=== PATIENT | female | born 1945 | race Caucasian/White ===

== ENCOUNTER 2018-10-02 02:30 | Observation (INO) | payer MEDICARE, OTHER ==
[~2018-10-02] VITALS: Ht 165.1 cm; Wt 84.4 kg
[~2018-10-02 02:30] MED LIST: CITA20 PO; LEVSOD100 PO; LISI20 PO; METO25ER PO; NAPR220 PO; TRIHYD253A PO
[2018-10-02] MEDS ORDERED: METF500 (03:26)
[2018-10-02] MEDS ORDERED: EXEM25 (03:29)
[2018-10-02 04:00] LABS: Source, Urine Clean Catch
[2018-10-02 04:04] LABS: Bilirubin, Urine Neg (Neg); Blood, Urine Neg (Neg); Glucose Qualitative, Urine Neg (Neg); Ketones, Urine Neg (Neg); Leukocyte Esterase, Urine 1+ (Neg); Nitrite, Urine Neg (Neg); Protein, Urine Neg (Neg); Urobilinogen, Urine NORM (Normal)
[2018-10-02 04:09] LABS: Appearance, Urine Clear (Clear); Color, Urine Pale Yellow (P-Yellow)
[2018-10-02 04:10] LABS: Bacteria Not Seen /hpf; Red Blood Cells, Urine Not Seen /hpf (0-2); Squamous Epithelial Cells Not Seen /hpf (Few); White Blood Cells, Urine 0-2 /hpf (0-5)
[2018-10-02 04:13] LABS: U Amphetamine Screen Not Detected; U Barbituate Screen Not Detected; U Benzodiazapine Screen Not Detected; U Buprenorphine Screen Not Detected; U Cannabinoids Screen Not Detected; U Cocaine Screen Not Detected; U Methadone Screen Not Detected; U Methamphetamine Screen Not Detected; U Opiates Screen Not Detected; U Oxycodone Screen Not Detected; U Phencyclidine Screen Not Detected; U Propoxyphene Screen Not Detected
[2018-10-02 04:23] LABS: BASOPHILS ABSOLUTE AUTO 0.03 K/mm3 (0.00-0.23); BASOPHILS PERCENT AUTO 1 % (0-2); EOSINOPHILS ABSOLUTE AUTO 0.22 K/mm3 (0.00-0.68); EOSINOPHILS PERCENT AUTO 4 % (0-6); Hematocrit 41.4 % (33.0-51.0); IMMATURE GRAN ABSOLUTE AUTO 0.01 K/mm3 (0.00-0.10); IMMATURE GRAN PERCENT AUTO 0 % (0-1); LYMPHOCYTES ABSOLUTE AUTO 1.63 K/mm3 (0.84-5.20); LYMPHOCYTES PERCENT AUTO 29 % (21-46); MONOCYTES ABSOLUTE AUTO 0.53 K/mm3 (0.16-1.47); MONOCYTES PERCENT AUTO 10 % (4-13); Mean Corpuscular HGB 33.7 pg (26.0-34.0); Mean Corpuscular HGB Conc 33.8 g/dL (31.5-36.5); Mean Corpuscular Volume 100 fL (80-100); Mean Platelet Volume 9.7 fL (9.1-12.4); NEUTROPHILS ABSOLUTE AUTO 3.15 K/mm3 (1.96-9.15); NEUTROPHILS PERCENT AUTO 57 % (41-73); Platelet Count 204 K/mm3 (150-400); RDW Coefficient Variation 13.2 % (11.7-14.2); RDW Standard Deviation 48.9 fL (35.1-46.3); Red Blood Cell Count 4.16 M/mm3 (3.80-5.20); White Blood Cell Count 5.57 K/mm3 (4.00-11.30)
[2018-10-02 04:51] LABS: Ethanol (Alcohol), Blood, Med 153 mg/dL; Salicylate <1.7 mg/dL (2.8-20.0)
[2018-10-02 05:01] LABS: Alanine Aminotransfer (ALT/SGP 37 U/L (12-78); Albumin, Blood 3.8 g/dL (3.4-5.0); Alk Phos 87 U/L (50-136); Anion Gap 11 mmol/L (6-16); Aspartate Aminotrans (AST/SGOT 25 U/L (12-37); Bilirubin, Total 0.4 mg/dL (0.1-1.0); Blood Urea Nitrogen 21 mg/dL (8-24); Bun/Creatinine Ratio 17.8 (12.0-20.0); CO2, Blood 24 mmol/L (21-32); Calcium, Blood 9.3 mg/dL (8.5-10.1); Chloride, Blood 105 mmol/L (98-108); Creatinine, Blood 1.18 mg/dL (0.40-1.00); Glomerular Filtration Rate 48 (60-); Glucose, Blood 133 mg/dL (70-99); Potassium, Blood 4.1 mmol/L (3.5-5.5); Sodium, Blood 140 mmol/L (136-145); Thyroid Stimulating Hormone <0.005 uIU/mL (0.360-4.800); Total Protein, Blood 7.8 g/dL (6.4-8.2)
[2018-10-02 05:13] LABS: Acetaminophen, Random <2.0 ug/mL (10.0-30.0)
[2018-10-02 07:12] LABS: Free Thyroxine 1.84 ng/dL (0.70-1.60)
[2018-10-02 07:13] LABS: Triiodothyronine, Free 3.43 pg/mL (2.18-3.98)
== END 2018-10-02 10:42 | disposition home or self-care (01) ==
LOC: ER 02:30 → EOR 02:31
PROVIDERS: ADMIT Emergency Medicine
DX: F32.9 Major depressive disorder, single episode, unspecified (principal); F43.25 Adjustment disorder with mixed disturbance of emotions and conduct; F10.129 Alcohol abuse with intoxication, unspecified; I10 Essential (primary) hypertension; Y90.6 Blood alcohol level of 120-199 mg/100 ml; Z79.899 Other long term (current) drug therapy; Z87.891 Personal history of nicotine dependence
CPT/HCPCS: 80053; 81001; 81025; 84439; 84443; 84481; 85025; 87086; 99285; G0378; G0480; Q3014

== ENCOUNTER → 2019-05-20 | Outpatient (CLI) | payer MEDICARE, OTHER ==
[~2019-05-20] MED LIST changes: +EXEM25; +METF500
== END | disposition home or self-care (01) ==
LOC: LAB SHORT 07:53 → PLD 07:53
DX: L60.2 Onychogryphosis (principal); B35.1 Tinea unguium
CPT/HCPCS: 88305; 88312

== ENCOUNTER 2019-08-18 12:55 | Day surgery (SDC) | payer MEDICARE, OTHER ==
[~2019-08-18] VITALS: Ht 165.1 cm; Wt 80.4 kg
== END 2019-08-18 15:46 | disposition home or self-care (01) ==
LOC: ORSCSDS 12:55
PROVIDERS: Internal Medicine Gastroenterology
PROC: 0DBH8ZX Excision of Cecum, Via Natural or Artificial Opening Endoscopic, Diagnostic (ICD-10-PCS; principal; 2019-08-18 14:15)
DX: Z12.11 Encounter for screening for malignant neoplasm of colon (principal); Z86.010 Personal history of colon polyps; K57.30 Diverticulosis of large intestine without perforation or abscess without bleeding; D12.0 Benign neoplasm of cecum; Z80.0 Family history of malignant neoplasm of digestive organs; Z87.891 Personal history of nicotine dependence; E11.9 Type 2 diabetes mellitus without complications; E66.9 Obesity, unspecified; Z68.30 Body mass index [BMI] 30.0-30.9, adult; Z79.84 Long term (current) use of oral hypoglycemic drugs; Z79.899 Other long term (current) drug therapy
CPT/HCPCS: 82947; J2704; J7120

== ENCOUNTER 2020-08-26 20:51 | Observation (INO) | payer MEDICARE, OTHER ==
[~2020-08-26] VITALS: Ht 165.1 cm; Wt 81.7 kg
[~2020-08-26 20:51] MED LIST changes: -EXEM25; +EXEM25 PO; -METF500; +METF500 PO
[2020-08-26 22:19] LABS: Source, Urine Voided
[2020-08-26 22:25] LABS: Bilirubin, Urine Neg (Neg); Blood, Urine 2+ (Neg); Glucose Qualitative, Urine Neg (Neg); Ketones, Urine Neg (Neg); Leukocyte Esterase, Urine 3+ (Neg); Nitrite, Urine Neg (Neg); Protein, Urine 2+ (Neg); Specific Gravity, Urine 1.015 (1.003-1.022); Urobilinogen, Urine NORM (Normal)
[2020-08-26 22:26] LABS: BASOPHILS ABSOLUTE AUTO 0.04 K/mm3 (0.00-0.23); BASOPHILS PERCENT AUTO 1 % (0-2); EOSINOPHILS ABSOLUTE AUTO 0.08 K/mm3 (0.00-0.68); EOSINOPHILS PERCENT AUTO 1 % (0-6); Hematocrit 42.6 % (33.0-51.0); Hemoglobin 14.5 g/dL (11.5-16.0); IMMATURE GRAN ABSOLUTE AUTO 0.01 K/mm3 (0.00-0.10); IMMATURE GRAN PERCENT AUTO 0 % (0-1); LYMPHOCYTES ABSOLUTE AUTO 1.57 K/mm3 (0.84-5.20); LYMPHOCYTES PERCENT AUTO 24 % (21-46); MONOCYTES ABSOLUTE AUTO 0.58 K/mm3 (0.16-1.47); MONOCYTES PERCENT AUTO 9 % (4-13); Mean Corpuscular HGB 34.4 pg (26.0-34.0); Mean Corpuscular Volume 101 fL (80-100); Mean Platelet Volume 9.6 fL (9.1-12.4); NEUTROPHILS ABSOLUTE AUTO 4.18 K/mm3 (1.96-9.15); NEUTROPHILS PERCENT AUTO 65 % (41-73); Platelet Count 204 K/mm3 (150-400); RDW Coefficient Variation 13.4 % (11.7-14.2); RDW Standard Deviation 49.3 fL (35.1-46.3); Red Blood Cell Count 4.21 M/mm3 (3.80-5.20); White Blood Cell Count 6.46 K/mm3 (4.00-11.30)
[2020-08-26 22:41] LABS: Alanine Aminotransfer (ALT/SGP 34 U/L (12-78); Alk Phos 82 U/L (50-136); Anion Gap 9 mmol/L (6-16); Aspartate Aminotrans (AST/SGOT 27 U/L (12-37); Bilirubin, Total 0.4 mg/dL (0.1-1.0); Blood Urea Nitrogen 27 mg/dL (8-24); Bun/Creatinine Ratio 17.8 (12.0-20.0); CO2, Blood 22 mmol/L (21-32); Calcium, Blood 9.2 mg/dL (8.5-10.1); Chloride, Blood 105 mmol/L (98-108); Creatinine, Blood 1.52 mg/dL (0.40-1.00); Ethanol (Alcohol), Blood, Med 208 mg/dL; Glomerular Filtration Rate 36 (60-); Glucose, Blood 106 mg/dL (70-99); Potassium, Blood 4.4 mmol/L (3.5-5.5); Salicylate <1.7 mg/dL (2.8-20.0); Sodium, Blood 136 mmol/L (136-145)
[2020-08-26 22:49] LABS: U Amphetamine Screen Not Detected; U Barbituate Screen Not Detected; U Benzodiazapine Screen Not Detected; U Buprenorphine Screen Not Detected; U Cannabinoids Screen Not Detected; U Cocaine Screen Not Detected; U Methadone Screen Not Detected; U Methamphetamine Screen Not Detected; U Opiates Screen Not Detected; U Oxycodone Screen Not Detected; U Phencyclidine Screen Not Detected; U Propoxyphene Screen Not Detected
[2020-08-26 22:50] LABS: Appearance, Urine Hazy (Clear); Color, Urine Yellow (P-Yellow); White Blood Cells, Urine 25-50 /hpf (0-5)
[2020-08-26 22:51] LABS: Acetaminophen, Random <2.0 ug/mL (10.0-30.0)
[2020-08-26 22:51] LABS: Amorphous Light (0-Heavy); Bacteria Many /hpf; Mucus Light (0-Heavy); Squamous Epithelial Cells Mod /hpf (Few)
[2020-08-27 00:48] LABS: SARS-Cov-2 (COVID-19) PCR, MMC NEGATIVE (NEGATIVE)
[2020-08-27] MEDS ORDERED: SYNTHROID150 MC2 PO (07:18)
[2020-08-27] MEDS ORDERED: METOPROLOL TART25 MG PO (07:18)
== END 2020-08-27 11:40 | disposition home or self-care (01) ==
LOC: ER 20:51 → EOR 20:52
PROVIDERS: ADMIT Emergency Medicine
DX: F43.25 Adjustment disorder with mixed disturbance of emotions and conduct (principal); F10.129 Alcohol abuse with intoxication, unspecified; S60.812A Abrasion of left wrist, initial encounter; X58.XXXA Exposure to other specified factors, initial encounter; I10 Essential (primary) hypertension; E11.9 Type 2 diabetes mellitus without complications; Z87.891 Personal history of nicotine dependence; Z79.84 Long term (current) use of oral hypoglycemic drugs; Z79.899 Other long term (current) drug therapy; Z20.822 Contact with and (suspected) exposure to COVID-19
CPT/HCPCS: 80053; 81001; 81025; 85025; 87086; 99285; A9270; G0378; G0480; U0004

== ENCOUNTER → 2022-01-22 | Outpatient (CLI) | payer MEDICARE, OTHER ==
[~2022-01-22] MED LIST changes: +METOPROLOL TART25 MG PO; +SYNTHROID150 MC2 PO
== END ==
LOC: PLD 07:45 → LAB SHORT 07:45
DX: D17.22 Benign lipomatous neoplasm of skin and subcutaneous tissue of left arm (principal)
CPT/HCPCS: 88304

== ENCOUNTER → 2022-05-15 | Outpatient (CLI) | payer MEDICARE, OTHER ==
[2022-05-15 19:20] LABS: Microalb/Creat Ratio UR, Rand 10.593 mg/g (0.000-30.000); Microalbumin, Random Urine 12.5 mg/L (0.000-20.000)
== END | disposition home or self-care (01) ==
LOC: LAB 15:00 → LAB SHORT 15:00
PROVIDERS: Nurse Practitioner Family
DX: E11.9 Type 2 diabetes mellitus without complications (principal)
CPT/HCPCS: 82043; 82570

== ENCOUNTER → 2023-07-10 | Outpatient (CLI) | payer MEDICARE, OTHER | END | disposition home or self-care (01) | LOC: LAB SHORT 12:30 → LAB EV 12:30 | DX: I12.9 Hypertensive chronic kidney disease with stage 1 through stage 4 chronic kidney disease, or unspecified chronic kidney disease (principal); N18.32 Chronic kidney disease, stage 3b ==

== ENCOUNTER 2024-03-31 14:43 | Observation (INO) | payer MEDICARE, OTHER ==
[~2024-03-31] VITALS: Ht 165.1 cm; Wt 84.2 kg
[2024-03-31 18:20] LABS: BASOPHILS ABSOLUTE AUTO 0.04 K/mm3 (0.00-0.23); BASOPHILS PERCENT AUTO 1 % (0-2); EOSINOPHILS ABSOLUTE AUTO 0.21 K/mm3 (0.00-0.68); EOSINOPHILS PERCENT AUTO 2 % (0-6); Hematocrit 42.1 % (33.0-51.0); Hemoglobin 14.4 g/dL (11.5-16.0); IMMATURE GRAN ABSOLUTE AUTO 0.08 K/mm3 (0.00-0.10); IMMATURE GRAN PERCENT AUTO 1 % (0-1); LYMPHOCYTES ABSOLUTE AUTO 1.53 K/mm3 (0.84-5.20); LYMPHOCYTES PERCENT AUTO 17 % (21-46); MONOCYTES ABSOLUTE AUTO 0.56 K/mm3 (0.16-1.47); MONOCYTES PERCENT AUTO 6 % (4-13); Mean Corpuscular HGB 32.8 pg (26.0-34.0); Mean Corpuscular HGB Conc 34.2 g/dL (31.5-36.5); Mean Corpuscular Volume 96 fL (80-100); Mean Platelet Volume 10.2 fL (9.1-12.4); NEUTROPHILS ABSOLUTE AUTO 6.42 K/mm3 (1.96-9.15); NEUTROPHILS PERCENT AUTO 73 % (41-73); Platelet Count 158 K/mm3 (150-400); RDW Coefficient Variation 13.6 % (11.7-14.2); RDW Standard Deviation 48.4 fL (35.1-46.3); Red Blood Cell Count 4.39 M/mm3 (3.80-5.20); White Blood Cell Count 8.84 K/mm3 (4.00-11.30)
[2024-03-31 18:47] LABS: Albumin, Blood 3.6 g/dL (3.4-5.0); Albumin/Globulin Ratio 0.8 (0.8-1.8); Bilirubin, Total 0.6 mg/dL (0.1-1.0); Bun/Creatinine Ratio 28.7 (12.0-20.0); Calcium, Blood 9.7 mg/dL (8.5-10.1); Creatinine, Blood 1.64 mg/dL (0.40-1.00); Globulin, Blood 4.3 g/dL (2.2-4.0); Potassium, Blood 4.8 mmol/L (3.5-5.5); Total Protein, Blood 7.9 g/dL (6.4-8.2)
[2024-03-31 18:48] LABS: International Normalized Ratio 0.99; Prothrombin Time Results 10.6 Sec (9.7-11.5)
[2024-03-31] MEDS ORDERED: Dose Adjust by Pharmacy XX STA (20:26)
[2024-03-31] MEDS ORDERED: Heparin Sodium 5000 Units/ML 1ML MDV IV ONE (20:30)
[2024-03-31] MEDS ORDERED: Heparin Sodium,Porcine/0.5 NS 500 ML IV SCH (20:30)
[2024-03-31] MEDS ORDERED: NS 1,000 ML IV SCH (20:50)
[2024-03-31] MEDS ORDERED: FLU VACC TS2024-25(6MOS UP)/PF 45 MCG/0.5 ML SYRINGE IM ONE (20:50)
[2024-03-31] MEDS ORDERED: Ondansetron HCl 2 MG / ML 2ML Vial IV PRN (20:50)
[2024-03-31 22:21] VITALS: BP 127/69
[2024-03-31] MEDS ORDERED: Amaryl2 MG PO (22:32)
[2024-03-31] MEDS ORDERED: ZOCOR20 MG PO (22:35)
[2024-03-31] MEDS ORDERED: 1/2 NS 250ml250 ML (22:35)
[2024-03-31] MEDS ORDERED: FARXIGA5 MG PO (22:38)
[2024-04-01] MEDS ORDERED: Insulin Human Lispro 100 Units/ML 3ML Syringe SC SCH
[2024-04-01 03:13] VITALS: BP 131/75
[2024-04-01 03:17] LABS: Hematocrit 37.3 % (33.0-51.0); Hemoglobin 12.5 g/dL (11.5-16.0); Mean Corpuscular HGB 32.6 pg (26.0-34.0); Mean Corpuscular HGB Conc 33.5 g/dL (31.5-36.5); Mean Corpuscular Volume 97 fL (80-100); Platelet Count 133 K/mm3 (150-400); RDW Coefficient Variation 13.7 % (11.7-14.2); RDW Standard Deviation 49.1 fL (35.1-46.3); Red Blood Cell Count 3.84 M/mm3 (3.80-5.20); White Blood Cell Count 7.98 K/mm3 (4.00-11.30)
[2024-04-01 03:34] LABS: Bun/Creatinine Ratio 28.4 (12.0-20.0); Creatinine, Blood 1.62 mg/dL (0.40-1.00); Potassium, Blood 4.5 mmol/L (3.5-5.5)
[2024-04-01] MEDS ORDERED: Dose Adjust by Pharmacy XX STA (04:07)
--- NOTE | 2024-04-01 04:18 | NUR ---
Pt A&O x4. VS WNL. I&O WNL, NPO after MN d/t potential procedure. Pt on IV heparin drip decreased to 17 units/kg/hr at 0415. Pt doing well. Leg is red,, warm and swollen approximately +2. Pain present when ambulates to BR, Pt encouraged to keep leg elevated and limt any position that will decrease circulation.
[2024-04-01] MEDS ORDERED: Levothyroxine Sodium 0.15 MG Tab PO SCH (06:00)
[2024-04-01 07:13] VITALS: BP 97/67
[2024-04-01] MEDS ORDERED: Metoprolol Tartrate 25 MG Tab PO SCH (09:00)
[2024-04-01] MEDS ORDERED: Citalopram Hydrobromide 20 MG Tab PO SCH (09:00)
[2024-04-01] MEDS ORDERED: Metoprolol Succinate 25 MG TABCR PO SCH (09:00)
[2024-04-01] MEDS ORDERED: Lisinopril 20 MG Tab PO SCH (09:00)
[2024-04-01] MEDS ORDERED: Apixaban 5 MG Tab PO SCH (10:54)
[2024-04-01] MEDS ORDERED: ELIQUIS5 MG PO (12:37)
[2024-04-01] MEDS ORDERED: ELIQUIS5 M2 PO (12:38)
--- NOTE | 2024-04-01 13:36 | NUR ---
DISCHARGE NOTE PT DISCHARGED HOME AT 1305. PT PROVIED W/ VERBAL AND WRITTEN INSTRUCTIONS AND REPORTED UNDERSTANDING. PT A&OX4, VSS, AMB IND, TOLERATING PO, VOIDING, AND DENIED PAIN. BELONGINGS WERE RETURNED. PT ESCOURTED OUT VIA W/C BY LUIS FERNANDO ESPINOZA.
== END 2024-04-01 13:39 | disposition home or self-care (01) ==
LOC: ER 14:43 → ERHOLD 14:44 → MEDS 14:44
PROVIDERS: Nurse Practitioner Acute Care; Student in an Organized Health Care Education/Training Program; ADMIT Student in an Organized Health Care Education/Training Program
DX: I82.411 Acute embolism and thrombosis of right femoral vein (principal); I82.431 Acute embolism and thrombosis of right popliteal vein; I82.451 Acute embolism and thrombosis of right peroneal vein; I12.9 Hypertensive chronic kidney disease with stage 1 through stage 4 chronic kidney disease, or unspecified chronic kidney disease; E11.22 Type 2 diabetes mellitus with diabetic chronic kidney disease; N18.30 Chronic kidney disease, stage 3 unspecified; E03.9 Hypothyroidism, unspecified; Z87.891 Personal history of nicotine dependence; Z79.84 Long term (current) use of oral hypoglycemic drugs; Z79.890 Hormone replacement therapy; Z79.899 Other long term (current) drug therapy; Z85.3 Personal history of malignant neoplasm of breast
CPT/HCPCS: 36415; 80048; 80053; 82947; 85025; 85027; 85520; 85610; 85730; 93005; 93010; 93971; 96365; 96366; 99285-25; A9270; G0378; J1644; J7030

== ENCOUNTER 2024-04-28 06:39 | Day surgery (SDC) | payer MEDICARE, OTHER ==
[2024-04-28] VITALS (10 sets, daily range): BP systolic 89–128; BP diastolic 57–101
[~2024-04-28] VITALS: Ht 165.1 cm; Wt 87.1 kg
[~2024-04-28 06:39] MED LIST changes: +1/2 NS 250ml250 ML; +Amaryl2 MG PO; +ELIQUIS5 M2 PO; +ELIQUIS5 MG PO; +FARXIGA5 MG PO; +MAXZIDE-25 PO; +ZOCOR20 MG PO
[2024-04-28] MEDS ORDERED: NS 0 ML IV ONE (07:01)
[2024-04-28] MEDS ORDERED: Heparin Sodium 1000 Units/ML 10ML MDV ONE ×2 (07:01→08:16)
[2024-04-28] MEDS ORDERED: Midazolam HCl 1MG / ML 2ML Vial ONE (07:30)
[2024-04-28] MEDS ORDERED: NS 1,000 ML IV ONE ×2 (07:31→08:16)
[2024-04-28] MEDS ORDERED: FentaNYL Citrate 50 MCG/ML 2 ML Injection ONE (07:31)
--- NOTE | 2024-04-28 09:48 | NUR ---
AT 0930 THE PT RETURNED TO RECOVERY ROOM IN BED. BILAT POPLITEAL SITES SOFT NON-TENDER WITH NO BLEEDING AND NO HEMATOMA; R POP SIDE HAS INTACT DRESSING AND L POP SITE HAS FLOWSTASIS IN PLACE. DR NARANJO IN ROOM TO SEE PT. PT SITTING UP IN BED DRINKING COFFEE WITH CALL LIGHT IN REACH.
--- NOTE | 2024-04-28 10:06 | NUR ---
NO CHANGES TO SITES.
--- NOTE | 2024-04-28 10:46 | NUR ---
FLOWSTASIS LOOSENED ON LEFT POPLITEAL WITH NO BLEEDING, NO HEMATOMA. NO CHANGES TO RIGHT POPLITEAL SITE.
--- NOTE | 2024-04-28 10:50 | NUR ---
PT'S IN ROOM.
--- NOTE | 2024-04-28 11:28 | NUR ---
DISCHARGE INSTRUCTIONS REVIEWED ALL QUESTIONS ANSWERED. PT AMBULATED TO BR TO VOID. FLOWSTASIS REMOVED AND CLEAR DRESSING WITH GAUZE PLACED OVER LEFT POP SITE WITH NO BLEEDING AND NO HEMATOMA. NO CHANGES TO R POP SITE. 20 G IV DISCONTINUED FROM R WRIST WITH INTACT CANNULA. PT ESCORTED OUT VIA WHEELCHAIR ESCORT.
== END 2024-04-28 11:30 | disposition home or self-care (01) ==
LOC: MHTC 06:39
DX: I82.411 Acute embolism and thrombosis of right femoral vein (principal); I12.9 Hypertensive chronic kidney disease with stage 1 through stage 4 chronic kidney disease, or unspecified chronic kidney disease; E11.22 Type 2 diabetes mellitus with diabetic chronic kidney disease; N18.9 Chronic kidney disease, unspecified; E03.9 Hypothyroidism, unspecified; Z87.891 Personal history of nicotine dependence; Z79.01 Long term (current) use of anticoagulants; Z79.899 Other long term (current) drug therapy
CPT/HCPCS: 76937; 85347; 99152; 99153; C1725; C1757; C1769; C1887; J1644; J2250; J3010; J7030; Q9967

== ENCOUNTER 2025-01-12 07:38 | Day surgery (SDC) | payer MEDICARE, OTHER ==
[~2025-01-12] VITALS: Ht 165.1 cm; Wt 85.2 kg
--- NOTE | 2025-01-12 09:48 | NUR ---
01/12/25 0948 DIANA GIVENS MD NOTIFIED FACE TO FACE OF [facility] AT BEDSIDE. NO NEW ORDERS, OK TO PROCEED
[2025-01-12 11:07] VITALS: BP 134/82
== END 2025-01-12 11:03 | disposition home or self-care (01) ==
LOC: ORSCSDS 07:38
PROVIDERS: Internal Medicine Gastroenterology
PROC: 0DBL8ZX Excision of Transverse Colon, Via Natural or Artificial Opening Endoscopic, Diagnostic (ICD-10-PCS; principal; 2025-01-12 09:00)
PROC: 0DBH8ZX Excision of Cecum, Via Natural or Artificial Opening Endoscopic, Diagnostic (ICD-10-PCS; principal; 2025-01-12 09:00)
PROC: 0DBP8ZX Excision of Rectum, Via Natural or Artificial Opening Endoscopic, Diagnostic (ICD-10-PCS; principal; 2025-01-12 09:00)
PROC: 0DBM8ZX Excision of Descending Colon, Via Natural or Artificial Opening Endoscopic, Diagnostic (ICD-10-PCS; principal; 2025-01-12 09:00)
DX: Z12.11 Encounter for screening for malignant neoplasm of colon (principal); K62.1 Rectal polyp; D12.0 Benign neoplasm of cecum; D12.3 Benign neoplasm of transverse colon; D12.4 Benign neoplasm of descending colon; K57.30 Diverticulosis of large intestine without perforation or abscess without bleeding; Z86.0101 Personal history of adenomatous and serrated colon polyps
CPT/HCPCS: 82947; 88305; J2704; J7120